=== PATIENT | female | born 1995 | race African-American/Black ===

== ENCOUNTER → 2019-07-11 08:19 | Outpatient (CLI) | payer OTHER | END | disposition home or self-care (01) | LOC: D.MRI 08:19 | PROVIDERS: ATTEND Orthopaedic Surgery | DX: M54.12 Radiculopathy, cervical region (principal) ==

== ENCOUNTER → 2019-07-27 11:36 | Outpatient (CLI) | payer OTHER | END | disposition home or self-care (01) | LOC: D.MRI 11:30 | PROVIDERS: ATTEND Clinical Nurse Specialist Family Health | DX: M25.511 Pain in right shoulder (principal) ==

== ENCOUNTER 2019-08-25 06:32 | Day surgery (SDC) | payer OTHER ==
[~2019-08-25] VITALS: Ht 162.6 cm; Wt 52.2 kg
[2019-08-25 07:06] VITALS: BP 131/95; Ht 162.6 cm; Wt 52.2 kg
[2019-08-25 07:06] LABS: HCG SERUM NEGATIVE (NEGATIVE)
[2019-08-25 07:45] LABS: HEMATOCRIT 40.7 % (36.0-48.0); HEMOGLOBIN 13.5 g/dL (12-16); MCH 29.5 pg (26.0-34.0); MCHC 33.2 g/dL (31.0-37.0); MCV 88.9 fL (80.0-100.0); MEAN PLATELET VOLUME 10.4 fL (7.4-10.4); RBC 4.58 10x6/uL (4.00-5.40); RDW 12.8 % (11.5-14.5)
--- NOTE | 2019-08-25 08:27 | NUR ---
0827 PT RESTING AFTER RECEIVING BLOCK IN RIGHT SHOULDER PER DR ALLEN. VSS.
[2019-08-25] MEDS ORDERED: HYDROCODON-ACE1 EA10 PO (09:21)
--- NOTE | 2019-08-25 15:38 | NUR ---
1152 IV DC'D. CATHETER TIP INTACT. NO BLEEDING AT SITE. BANDAID APPLIED. 1215 PT DRESSED AND READY FOR DISCHARGE. WAITING ON A WHEELCHAIR FOR TRANSPORT HOME.
--- NOTE | 2019-08-26 14:21 | OP ---
PATIENT NAME: KADEN KAY MEDICAL RECORD: [id number] :93 LOCATION:D.OPS ADMISSION DATE: SURGEON: MELISSA LOMELI MD DATE OF OPERATION: 08/25/2019 PREOPERATIVE DIAGNOSES: Superior labrum anterior and posterior lesion of the right shoulder with impingement syndrome. POSTOPERATIVE DIAGNOSES: Superior labrum anterior and posterior lesion of the right shoulder with impingement syndrome. PROCEDURES: 1. Arthroscopic posterior labral tear debridement. 2. Arthroscopic subacromial decompression, acromioplasty and bursectomy. SURGEON: Melissa Lomeli MD ANESTHESIA: General. INTRAOPERATIVE COMPLICATIONS: None. SUMMARY OF PATHOLOGIC FINDINGS: The patient did indeed have a tear, it was in the very posterior superior aspect with a large pannus indicating a tear of internal impingement. The bicipital labral junction was in excellent overall condition anteriorly as well as underneath the bicipital labral junction. The patient did have a downward sloping acromion. This was treated with acromioplasty, AC joint was in good condition. OPERATIVE SUMMARY IN DETAIL: After obtaining the appropriate preoperative orthopedic surgery consent as well as anesthetic consultation, evaluation and clearance, the patient was brought to the operating room and placed on the operating table in supine position. After general laryngeal mask was administered, the patient was placed in left lateral decubitus position. All pressure points were well padded to include down leg peroneal pad as well as axillary roll. The patient was held firmly to the operating table using the vacuum pack suction system. Right upper extremity and shoulder were then prepped and draped in routine sterile fashion. The arm was held in the [employer] traction boom at 30 degrees of forward flexion, 30 degrees of abduction, 10 pounds of traction laterally. At this point, the appropriate timeout was taken and agreed upon by all given the patient's unique identifiers. Arthroscopy portal was established in the port posteriorly. Anterior portal was established in the anterior safe interval under direct arthroscopic visualization. At this point, diagnostic arthroscopy was as noted above. A resector was then utilized to debride the posterior superior labral tear. The rotator cuff in the posterior superior cuff and all other portions of the cuff were in overall good condition with only mild irritation. Having completed this, attention was turned to the subacromial space. Accessory lateral portal was created through which the [place] tissue ablation system was utilized to denude the undersurface of the acromion of all soft tissue elements and released the coracoacromial ligament. A 5-0 barrel bur was then used to perform acromioplasty at the level of acromioclavicular joint. Having completed this, arthroscopy portals were closed in routine interrupted fashion using 4-0 Prolene. Sterile dressings were applied. The patient was awakened and taken to the recovery room in stable condition. All final needle and sponge counts were correct. OPERATIVE REPORT [id number] KADEN KAY TRANSINT:[id number] Voice Confirmation ID: [id number] DOCUMENT ID: [id number] YANI BRO, MELISSA RICH at 1421 CC: [id number] DICTATION DATE: 08/26/19 1054 CERTIFIED [place] REPORTER: 08/26/19 1310 [facility] 08/25/19 [id number] [place] [address]
== END 2019-08-25 12:31 | disposition home or self-care (01) ==
LOC: D.OPS 06:32
PROVIDERS: Anesthesiology; ATTEND Orthopaedic Surgery
DX: S43.431A Superior glenoid labrum lesion of right shoulder, initial encounter (principal); M75.41 Impingement syndrome of right shoulder; X58.XXXA Exposure to other specified factors, initial encounter; M25.511 Pain in right shoulder